=== PATIENT | male | born 1980 | race African-American/Black ===

== ENCOUNTER 2018-12-27 20:53 | Emergency (ER) | payer SELFPAY ==
[~2018-12-27] VITALS: Ht 175.3 cm; Wt 61.4 kg
[~2018-12-27 20:53] MED LIST: BACTRIM DS1 TAB OR; NO HOME MEDS
[2018-12-27] MEDS ORDERED: BACTRIM DS1 TAB PO (21:41)
[2018-12-27 22:00] VITALS: BP 117/80
[2018-12-27] MEDS ORDERED: PERCOCET 10/31 COMBO PO (22:04)
== END 2018-12-27 22:00 | disposition home or self-care (01) | DRG 982 ==
LOC: ED 20:53
PROC: 0XQPXZZ Repair Left Index Finger, External Approach (ICD-10-PCS; principal; 2018-12-27)
PROC: 2W3KX1Z Immobilization of Left Finger using Splint (ICD-10-PCS; 2018-12-27)
PROC: 2W3KX1Z Immobilization of Left Finger using Splint (ICD-10-PCS; 2018-12-27)
DX: S61.211A Laceration without foreign body of left index finger without damage to nail, initial encounter (principal); S66.323A Laceration of extensor muscle, fascia and tendon of left middle finger at wrist and hand level, initial encounter; S66.325A Laceration of extensor muscle, fascia and tendon of left ring finger at wrist and hand level, initial encounter; S61.213A Laceration without foreign body of left middle finger without damage to nail, initial encounter; S61.215A Laceration without foreign body of left ring finger without damage to nail, initial encounter; W26.0XXA Contact with knife, initial encounter; Y93.G1 Activity, food preparation and clean up; Y92.009 Unspecified place in unspecified non-institutional (private) residence as the place of occurrence of the external cause

== ENCOUNTER 2019-01-17 23:46 | Emergency (ER) | payer SELFPAY ==
[~2019-01-17] VITALS: Ht 175.3 cm; Wt 61.0 kg
[~2019-01-17 23:46] MED LIST changes: +BACTRIM DS1 TAB PO; +PERCOCET 10/31 COMBO PO
[2019-01-18 00:25] VITALS: BP 101/32
== END 2019-01-18 00:25 | disposition home or self-care (01) | DRG 950 ==
LOC: ED 23:46
DX: S61.211D Laceration without foreign body of left index finger without damage to nail, subsequent encounter (principal); B95.7 Other staphylococcus as the cause of diseases classified elsewhere; S66.323D Laceration of extensor muscle, fascia and tendon of left middle finger at wrist and hand level, subsequent encounter; S66.325D Laceration of extensor muscle, fascia and tendon of left ring finger at wrist and hand level, subsequent encounter; S61.213D Laceration without foreign body of left middle finger without damage to nail, subsequent encounter; S61.215D Laceration without foreign body of left ring finger without damage to nail, subsequent encounter